=== PATIENT | male | born 1970 | race Caucasian/White ===

== ENCOUNTER 2023-05-19 10:46 | Emergency (ER) | payer SELFPAY ==
[~2023-05-19] VITALS: Ht 172.7 cm; Wt 77.1 kg
[2023-05-19] MEDS ORDERED: Robaxin750 MG PO (11:33)
[2023-05-19 11:48] VITALS: BP 172/81
== END 2023-05-19 11:47 | disposition home or self-care (01) ==
LOC: ER 10:46
DX: S16.1XXA Strain of muscle, fascia and tendon at neck level, initial encounter (principal); X58.XXXA Exposure to other specified factors, initial encounter
CPT/HCPCS: 99283; A9270